=== PATIENT | female | born 1955 | race Caucasian/White ===

== ENCOUNTER 2022-07-06 10:51 | Emergency (ER) | payer MEDICARE, OTHER ==
[~2022-07-06] VITALS: Ht 162.6 cm; Wt 80.7 kg
[2022-07-06] VITALS (8 sets, daily range): BP systolic 118–141; BP diastolic 83–95
[~2022-07-06 10:51] MED LIST: PERCOCET1 TA2 PO; ROCEPHIN 1 GM1 GM IV
[2022-07-06] MEDS ORDERED: CITALOPRAM20 MG PO (11:47)
[2022-07-06] MEDS ORDERED: NAPROXEN500 MG PO (13:41)
[2022-07-06] MEDS ORDERED: CYCLOBENZAPRINE10 MG PO (13:41)
== END 2022-07-06 13:41 | disposition home or self-care (01) ==
LOC: ED 10:51
DX: S43.401A Unspecified sprain of right shoulder joint, initial encounter (principal); W01.0XXA Fall on same level from slipping, tripping and stumbling without subsequent striking against object, initial encounter; M62.838 Other muscle spasm; F32.A Depression, unspecified

== ENCOUNTER 2023-12-26 16:14 | Emergency (ER) | payer MEDICARE ==
[~2023-12-26] VITALS: Ht 162.6 cm; Wt 75.9 kg
[2023-12-26] VITALS (13 sets, daily range): BP systolic 103–121; BP diastolic 62–87
[~2023-12-26 16:14] MED LIST changes: +CITALOPRAM20 MG PO; +CYCLOBENZAPRINE10 MG PO; +NAPROXEN500 MG PO
[2023-12-26 17:11] LABS: BASO% 0.5 % (0-3); EOS% 1.2 % (0-8); IMMATURE GRANULOCYTES 0.2 % (0.0-5.0); LYMPH% 31.6 % (15-41); MEAN CORPUSCULAR HGB 28.9 pG CALC (26.0-32.0); MEAN CORPUSCULAR HGB CONC 33.3 g/dL CAL (32.0-36.0); MONO% 10.1 % (2-13); NEUT# 3.22 thou/uL (2.00-7.15); NEUT% 56.4 % (42-76); RED BLOOD COUNT 4.7 mill/uL (4.20-5.60); RED CELL DISTRI WIDTH 13.2 % (11.5-15.5)
[2023-12-26 17:12] LABS: HEMATOCRIT 40.9 % (37.0-47.0); HEMOGLOBIN 13.6 g/dl (12.0-16.0)
[2023-12-26 17:25] LABS: POTASSIUM 3.8 mmol/l (3.5-5.1); TOTAL PROTEIN 7.4 g/dL (6.3-8.2)
[2023-12-26] MEDS ORDERED: KETOROLAC TROMETHAMINE 30 MG/ML SDV IM ONE (17:55)
[2023-12-26] MEDS ORDERED: PREDNISONE20 MG PO (19:46)
[2023-12-26] MEDS ORDERED: NAPROXEN500 MG PO (19:46)
== END 2023-12-26 20:01 | disposition home or self-care (01) ==
LOC: ED 16:14
PROVIDERS: Nurse Practitioner
DX: M25.572 Pain in left ankle and joints of left foot (principal); R79.89 Other specified abnormal findings of blood chemistry; Z86.718 Personal history of other venous thrombosis and embolism